=== PATIENT | male | born 1960 | race Two or more races ===

== ENCOUNTER → 2021-11-13 | Outpatient (CLI) | payer OTHER ==
[2021-11-13 13:45] LABS: BLOOD UREA NITROGEN 16 MG/DL (7-18); CALCIUM LEVEL 9.6 MG/DL (8.8-10.2); CARBON DIOXIDE LEVEL 27 MEQ/L (21-32); CHLORIDE LEVEL 104 MEQ/L (98-107); CREATININE FOR GFR 0.81 MG/DL (0.70-1.30); GLOMERULAR FILTRATION RATE > 60.0 (>49); GLUCOSE, FASTING 155 MG/DL (70-100); POTASSIUM SERUM 4.8 MEQ/L (3.5-5.1); SODIUM LEVEL 138 MEQ/L (136-145)
== END ==
LOC: M PLALAB 09:20
PROVIDERS: ATTEND Physician Assistant
DX: R97.20 Elevated prostate specific antigen [PSA] (principal)

== ENCOUNTER → 2021-11-21 | Outpatient (CLI) | payer OTHER ==
[~2021-11-21] MED LIST: PROHANCE 279.3MG/ML 15ML VIAL As Ordered ONE; PROHANCE 279.3MG/ML 5ML VIAL As Ordered ONE
== END ==
LOC: M RAD 10:21
PROVIDERS: ATTEND Physician Assistant
DX: R97.20 Elevated prostate specific antigen [PSA] (principal)
CPT/HCPCS: 72197; A9576

== ENCOUNTER → 2021-12-16 | Outpatient (REF) | payer OTHER | LOC: M SMT 12:45 | PROVIDERS: ATTEND Urology | DX: R97.20 Elevated prostate specific antigen [PSA] (principal) ==

== ENCOUNTER → 2022-06-23 | Outpatient (CLI) | payer OTHER ==
[2022-06-24 23:07] LABS: PSA TOTAL 16.4 ng/mL (0.0-4.0)
== END ==
LOC: M PLALAB 08:02
PROVIDERS: ATTEND Urology
DX: R97.20 Elevated prostate specific antigen [PSA] (principal)

== ENCOUNTER → 2022-06-26 | Outpatient (REF) | payer OTHER | LOC: M SMT 13:05 | PROVIDERS: ATTEND Urology | DX: N39.0 Urinary tract infection, site not specified (principal) ==

== ENCOUNTER → 2022-09-09 | Outpatient (CLI) | payer OTHER | LOC: M PLALAB 08:14 | PROVIDERS: ATTEND Urology | DX: R97.20 Elevated prostate specific antigen [PSA] (principal) ==

== ENCOUNTER → 2022-11-13 | Outpatient (CLI) | payer OTHER ==
[~2022-11-13] MED LIST changes: +ISOVUE-370 76% 100ML VIAL As Ordered ONE; -PROHANCE 279.3MG/ML 15ML VIAL As Ordered ONE; -PROHANCE 279.3MG/ML 5ML VIAL As Ordered ONE
== END ==
LOC: M RAD 12:41
DX: R31.21 Asymptomatic microscopic hematuria (principal)
CPT/HCPCS: 74178; Q9967